=== PATIENT | female | born 1990 | race Caucasian/White ===

== ENCOUNTER → 2023-12-29 13:45 | Outpatient (REF) | payer BC, SELFPAY ==
[2023-12-29 15:41] LABS: Hematocrit 45.7 % (37.0-47.0); Mean Corp Hgb Conc. 32.8 g/dL (33.0-37.0); Mean Corpuscular Hgb 29.8 pg (27.0-31.0); Mean Corpuscular Volume 90.7 fL (81.0-99.0); Mean Platelet Volume 13.5 fL (7.4-10.4); Platelet Count 116 10^3/uL (130-400); Red Blood Cell Count 5.04 10^6/uL (4.20-5.40); Red Cell Dist. Width 13.4 % (11.5-14.5); White Blood Cell Count 6.8 10^3/uL (4.8-10.8)
[2023-12-29 15:44] LABS: % Basophils 0.7 % (0-2); % Eosinophils 1.6 % (0-6); % Immature Granulocytes 0.6 % (0-0.5); % Lymphocytes 29.7 % (20.5-51.1); % Monocytes 6.5 % (1.7-9.3); % Neutrophils 60.9 % (42.2-75.2); Absolute Basophils 0.1 10^3/uL (0-0.2); Absolute Eosinophils 0.1 10^3/uL (0-0.7); Absolute Monocytes 0.4 10^3/uL (0.1-0.6); Absolute Neutrophils 4.1 10^3/uL (1.4-6.5); Nucleated Red Blood Cells % 0 %; Reticulocyte Count 1.3 % (0.4-2.8)
[2023-12-29 15:52] LABS: ALT (SGPT) 12 U/L (0-35); AST (SGOT) 23 U/L (14-36); Albumin 4.3 g/dl (3.5-5.0); Alkaline Phosphatase 67 U/L (38-126); Blood Urea Nitrogen 9 mg/dl (7-17); Carbon Dioxide 25 mmol/L (22-30); Chloride 104 mmol/L (98-107); Glucose 86 mg/dl (70-99); HDL Cholesterol 71 mg/dl; Iron 120 ug/dl (37-170); LDL Cholesterol, Calculated 119 mg/dl; Potassium 4.1 mmol/L (3.5-5.1); Sodium 142 mmol/L (135-145); Total Bilirubin 0.6 mg/dl (0.2-1.3); Total Cholesterol 213 mg/dl (50-199); Total Protein 6.8 g/dl (6.3-8.2); Triglyceride 118 mg/dl (10-149); Very Low Density Lipoprotein 23 mg/dl (0-30); eGFR > 60.00
[2023-12-29 16:01] LABS: Percent Saturation 29 % (20-50); Total Iron Binding Capacity 406 ug/dl (265-497)
[2023-12-29 16:10] LABS: Free T3 3.97 pg/ml (2.77-5.27); Free T4 1.05 ng/dl (0.78-2.19); Vitamin D, 25-OH*** 41.1 ng/mL (30-80)
[2023-12-29 16:14] LABS: Prolactin 36.8 ng/ml (3.0-18.6)
[2023-12-29 16:23] LABS: TSH 0.93 uIU/ml (0.47-4.68)
[2023-12-29 16:27] LABS: Ferritin 12.6 ng/ml (6.24-137)
[2023-12-29 16:59] LABS: Folate 16.4 ng/ml (2.76-20); Vitamin B12 280 pg/ml (239-931)
== END ==
LOC: CLAB 13:45
PROVIDERS: ATTENDING PHYSICIAN Family Medicine
DX: D64.9 Anemia, unspecified (principal); D50.9 Iron deficiency anemia, unspecified; R53.82 Chronic fatigue, unspecified; E55.9 Vitamin D deficiency, unspecified; E03.8 Other specified hypothyroidism
CPT/HCPCS: 36415; 80053; 80061; 82306; 82607; 82728; 82746; 83540; 83550; 84146; 84439; 84443; 84481; 85025; 85045

== ENCOUNTER → 2025-02-12 13:54 | Outpatient (REF) | payer BC, SELFPAY ==
[2025-02-12 14:15] LABS: ALT (SGPT) 13 U/L (0-35); AST (SGOT) 22 U/L (14-36); Albumin 4.4 g/dl (3.5-5.0); Alkaline Phosphatase 60 U/L (38-126); Blood Urea Nitrogen 10 mg/dl (7-17); Calcium 9.3 mg/dl (8.4-10.2); Carbon Dioxide 28 mmol/L (22-30); Chloride 104 mmol/L (98-107); Glucose 89 mg/dl (70-99); HDL Cholesterol 74 mg/dl; Iron 144 ug/dl (37-170); LDL Cholesterol, Calculated 124 mg/dl; Potassium 4.3 mmol/L (3.5-5.1); Sodium 135 mmol/L (135-145); Total Protein 7.1 g/dl (6.3-8.2); Very Low Density Lipoprotein 17 mg/dl (0-30); eGFR > 60.00
[2025-02-12 14:24] LABS: Total Iron Binding Capacity 419 ug/dl (265-497)
[2025-02-12 14:28] LABS: Hematocrit 44.4 % (37.0-47.0); Hemoglobin 14.5 g/dL (12.0-16.0); Mean Corp Hgb Conc. 32.7 g/dL (33.0-37.0); Mean Corpuscular Volume 93.1 fL (81.0-99.0); Nucleated Red Blood Cells % 0 %; Platelet Count 112 10^3/uL (130-400); Red Cell Dist. Width 13.5 % (11.5-14.5)
[2025-02-12 14:32] LABS: Vitamin D, 25-OH*** 52.0 ng/mL (30-80)
[2025-02-12 14:50] LABS: Ferritin 31.3 ng/ml (6.24-137)
[2025-02-13 10:13] LABS: Glycohemoglobin (HgbA1c) 4.7 % (4.0-5.9)
[2025-02-14 10:58] LABS: Lyme Antibody Screen, EIA Negative (Negative); Rheumatoid Agglutinin Less Than 10 IU (<10 IU)
[2025-02-15 06:00] LABS: ANA, IgG Reflex to HEp-2 None Detected (None Detected)
== END ==
LOC: CLAB 13:54
PROVIDERS: ATTENDING PHYSICIAN Physician Assistant Medical
DX: Z00.00 Encounter for general adult medical examination without abnormal findings (principal); E55.9 Vitamin D deficiency, unspecified; K31.84 Gastroparesis; F41.9 Anxiety disorder, unspecified; F32.A Depression, unspecified; K21.9 Gastro-esophageal reflux disease without esophagitis; G90.A Postural orthostatic tachycardia syndrome [POTS]; G25.81 Restless legs syndrome; D69.6 Thrombocytopenia, unspecified
CPT/HCPCS: 80053; 80061; 82306; 82728; 83036; 83540; 83550; 84443; 85025; 86038; 86430; 86618